=== PATIENT | male | born 1990 | race American Indian/Alaskan Native ===

== ENCOUNTER 2022-05-09 14:08 | Emergency (ER) | payer MEDICAID ==
[~2022-05-09] VITALS: Ht 175.3 cm; Wt 95.5 kg
[2022-05-09 15:10] LABS: COLLECTION METHOD CLEAN CATCH
[2022-05-09 15:17] LABS: BASO % 0.3 % (0.0-2.0); EOS % 0.2 % (0.0-4.0); GRAN # 6.6 K/mm3 (1.4-6.5); GRAN % 75.5 % (42.2-75.2); HEMATOCRIT 46.6 % (42.0-52.0); LYMPH # 1.7 K/mm3 (1.2-3.4); LYMPH % 19.1 % (20.0-51.0); MEAN CELL VOLUME 85 fl (80.0-100.0); MEAN CORPUSCULAR HEMOGLOBIN 29 pg (27-31); MEAN CORPUSCULAR HGB CONC 34 g/dl (33.0-37.0); MEAN PLATELET VOLUME 9.6 fl (7.4-10.4); MONO # 0.4 K/mm3 (0.1-0.6); MONO % 4.7 % (1.7-9.3); PLATELET COUNT 353 K/mm3 (130-400); RED BLOOD COUNT 5.51 M/mm3 (4.20-5.60); REDCELL DISTRIBUTION WIDTH-CV 12.6 % (11.5-14.5)
[2022-05-09 15:23] LABS: MUCOUS Present (NOT PRESENT); SQUAMOUS EPITHELIAL 0-2 /hpf (0-10); URINE BACTERIA Rare /hpf (NONE SEEN)
[2022-05-09 15:29] LABS: PH 6.5 (5-8); URINE APPEARANCE Cloudy (CLEAR/HAZY); URINE COLOR Yellow (YELLOW); URINE GLUCOSE Negative (NEGATIVE); URINE KETONE Negative (NEGATIVE); URINE PROTEIN(semi-quant) TRACE (NEGATIVE)
[2022-05-09 15:30] LABS: URINE BLOOD Negative (NEGATIVE); URINE NITRATE Positive (NEGATIVE)
[2022-05-09 15:32] LABS: ALBUMIN 4.3 gm/dL (3.5-5.0); BILIRUBIN,TOTAL 0.6 mg/dL (0.2-1.2); CALCIUM 9.7 mg/dL (8.4-10.2); CREATININE, serum 0.9 mg/dL (0.72-1.25); POTASSIUM 3.9 mmol/L (3.5-4.5); TOTAL PROTEIN 8.1 gm/dL (6.2-8.1)
[2022-05-09] MEDS ORDERED: LEVAQUIN 2250 MG/TAB PO (15:56)
[2022-05-09] MEDS ORDERED: DITROPAN 5MG TAB5 MG PO (15:57)
[2022-05-09 16:21] VITALS: BP 137/91; PULSE 89; TEMP 97.8
== END 2022-05-09 16:24 | disposition home or self-care (01) ==
LOC: COL.ER 14:08
PROVIDERS: Emergency Medicine
DX: N39.0 Urinary tract infection, site not specified (principal); Z28.310 Unvaccinated for COVID-19